=== PATIENT | male | born 1945 | race Caucasian/White ===

== ENCOUNTER → 2018-05-12 | Outpatient (CLI) | payer OTHER, BC ==
[~2018-05-12] VITALS: Ht 177.8 cm; Wt 81.6 kg
[~2018-05-12] MED LIST: ASPIR 8181 MG PO; CALCIUM 500 +1 EACH PO; CENTRUM SILVER1 EAC4 PO; COREG25 MG PO; COUMADIN 2 MG TA2 M1 PO; COUMADIN 4 MG TA4 M1 PO; ENOXAPARIN80 MG/0.8 SUBQ; INDAPAMIDE2.5 MG PO; LIPITOR80 MG PO; LISINOPRIL20 MG PO; POTASSIUM20 PO; ZYLOPRIM300 MG PO
[2018-05-12 08:24] LABS: INR 1.3; PROTIME 13.4 Seconds (9.3-11.4)
--- NOTE | 2018-05-13 16:06 | PATH ---
[facility] [address] [place] [address] PATHOLOGY RPT PROCEDURE Name: FER IVAN Room #: REG [facility].#: [id number] ������������������ Admission: 05/12/18 ������������������ Date of : 43 Discharge: Report #: [id number] Path Case #: [id number] [facility] Accession Number: [id number] . 01 Material submitted: . BX POLYP AT CECUM . 01 Clinical history: . History of polyps Colon polyp, diverticulosis, small internal hemorrhoids . 02 Diagnosis: Polyp, at cecum, endoscopic biopsy: - Tubular adenoma. - Negative for high grade dysplasia. (IUV/db; 05/13/2018) LBQ/05/13/2018 . 02 Electronically signed: . Shyann Brandt MD, Pathologist NPI- [id number] . 01 Gross description: . The specimen is received in formalin, labeled "Gordier, Fer, BX polyp at cecum" and consists of 2 fragments of judge tissue measuring 0.3 x 0.2 x 0.1 cm each. They are entirely submitted in A1. (SDY; 05/12/2018) SYU/SYU . 02 Pathologist provided ICD-10: D12.0 . 02 CPT . 281402 Specimen Comment: A courtesy copy of this report has been sent to Specimen Comment: [phone], . Specimen Comment: Report sent to / DR NULL Performed at: [address], [place] [id number] MD Brian Ragland MD Phone: [phone] Performed at: [address] [id number] MD Shyann Brandt MD Phone: [phone]
--- NOTE | 2018-05-16 17:56 | P ---
[facility] [place] [address] PROCEDURE REPORT Name: SITA IVAN Room #: REG [facility]#: [id number] Admission: 05/12/18 ������������������ Attend Phys: Glynn Menjivar MD Discharge: ������������������ Date of : 43 Report #: [id number] THIS REPORT FOR: //name// CC: DO Glynn Whitt MD OUTPATIENT COLONOSCOPY REPORT BRIEF HISTORY: The patient is a 72-year-old male with a previous history of 8 adenomas removed. Mother had colon cancer at age 51. Also, had a sibling who had surgery for advanced villous adenoma, which was not malignant. PREOPERATIVE DIAGNOSIS: High risk screening colonoscopy due to family history and history of polyps. POSTOPERATIVE DIAGNOSES: 1. Diminutive polyp, cecum. 2. Mild sigmoid diverticulosis coli. 3. Small internal hemorrhoids. MEDICATIONS: Deep sedation with propofol per Anesthesia. SPECIMEN: Cecal polyp. ESTIMATED BLOOD LOSS: 3 mL. PROCEDURE: Colonoscopy to cecum with biopsy. FINDINGS: Prior to propofol sedation, procedure of colonoscopy discussed with the patient as well as potential risks and its complications. He indicates he understands and desires to proceed. DESCRIPTION OF PROCEDURE: With the patient in left lateral decubitus position, digital examination was completed, which revealed no abnormalities. Subsequently, the Olympus video colonoscope was introduced into the rectum and advanced under direct vision to the cecum. Done with minimal difficulty. The cecum was identified by the ileocecal valve and the appendiceal orifice. I was able to advance the scope into the mouth of the ileocecal valve and see a villous pattern, but due to looping, we could not fully intubate the distal ileum. At that point, the scope was slowly withdrawn and careful circumferential views were obtained. Upon slow withdrawal of the scope, the prep was excellent after cleaning up the small amount of residual material. The mucosa was within normal limits, normal vascular pattern, normal light reflex. In the cecum, a diminutive polyp was seen and removed with biopsy forceps. The scope was further withdrawn and no additional neoplastic lesions were seen. The [address] [address] PROCEDURE REPORT Name: SITA IVAN Room #: REG [facility].#: [id number] Admission: 05/12/18 ������������������ Attend Phys: Glynn Menjivar MD Discharge: ������������������ Date of : 43 Report #: [id number] colonic mucosa was normal through the remainder of the exam. In the sigmoid colon, there was mild sigmoid diverticular disease with diffuse scattered medium sized diverticula. There was no endoscopic evidence of diverticulitis. The scope was withdrawn into the rectum and upon retroflexion, small hemorrhoids were seen. The scope was withdrawn. The patient tolerated the procedure well. CONDITION OF THE PATIENT UPON DISCHARGE: Following procedure, the patient was drowsy, aroused, conversant and will be discharged home when fully ambulatory. INSTRUCTIONS TO THE PATIENT AND FAMILY AT THE TIME OF DISCHARGE: We will follow up on the pathology. However, in view of his personal history and family history, we will have him return in 5 years for followup colonoscopy. We will make additional recommendations as needed after review of the path report. He will return to the care of Dr. Kevin Coy and return to see me as needed. Last colonoscopy was 3-1/2 years ago. Withdrawal time from the cecum was 9 minutes 35 seconds. ��������������������������������������������� <ELECTRONICALLY SIGNED> ���������������������������������������� By: Glynn Menjivar MD ��������������������������������������������� 05/16/18 [id number] Glynn Menjivar MD /nt
== END | disposition home or self-care (01) ==
LOC: GI 06:37
PROVIDERS: Specialist
DX: Z12.11 Encounter for screening for malignant neoplasm of colon (principal); D12.0 Benign neoplasm of cecum; Z86.010 Personal history of colon polyps; K57.30 Diverticulosis of large intestine without perforation or abscess without bleeding; K64.8 Other hemorrhoids
CPT/HCPCS: 62110; 62900